=== PATIENT | female | born 1965 | race Caucasian/White ===

== ENCOUNTER 2016-12-27 00:51 | Emergency (ER) | payer OTHER ==
--- NOTE | 2016-12-27 01:42 | ED NURSING NOTES ---
Clinical Report - Nurses [place] [address] [place] [address] 12/27/2016 0:51 Patient: SUMA VANEGAS TRIAGE Chief Complaint: DRUG OVERDOSE. Alert. No acute distress. MAT COMA SCORE: Mat Coma Scale: 15- eyes open spontaneously (4); best verbal response- oriented x 4 (5); best motor response- obeys commands (6). --01:02 Prashant Russo R.N. 00:56 12/27/16. BP: 131/108. HR: 103. RR: 16. O2 saturation: 99%. Temp: 97.9 F (oral). --01:02 Prashant Russo R.N. Weight: 63.5 kg. Height/Length: 65 inches Per Patient. BMI: 23.3. --01:02 Prashant Russo R.N. Medications None. --01:00 Prashant Russo R.N. Allergies No Known Drug Allergy. --01:00 Prashant Russo R.N. History Arrived by private vehicle, and accompanied by family. This occurred just prior to arrival approximately 25 minutes ago. ( Patient presents to the ED via medics with concerns that she may have accidently injected a speedball in her carotid artery instead of the vein. Patient complaining of pain at the injection site. Patient is drowsy upon arrival.). Treatment CLASSIFIED ADVERTISING MANAGER: None. PAST MEDICAL HX: Immunizations: up-to-date. SOCIAL HX: Heavy tobacco smoker (cigarette)- less than 1 pack per day. Occasional alcohol use. History of heavy IV drug use: heroin, methamphetamines. FALL RISK ASSESSMENT: Fall risk assessment completed. No fall risk identified. NUTRITIONAL RISK ASSESSMENT: The nutritional risk assessment revealed no deficiencies. FUNCTIONAL ASSESSMENT: Functional assessment: no impairments noted. LEARNING NEEDS ASSESSMENT: The learning needs assessment revealed no barriers. SKIN INTEGRITY ASSESSMENT: Skin integrity risk assessment completed. No skin integrity risk identified. --01:02 Prashant Russo R.N. PROBLEMS: Carpal Tunnel Syndrome [Chronic]. --01:00 Prashant Russo R.N. Hepatitis C. Cervical cancer. Subconjunctival Hemorrhage. Conjunctivitis. Cervical Dysplasia. Cellulitis. Tetanus Status. Immunizations. Lifestyle / Substance Problems. Abscess. LNMP - Last Normal Menstrual Period. --01:00 Prashant Russo R.N. Sty [RuleOut]. --01:00 Prashant Russo R.N. The following entry was modified by Danya Amaya MD, 01:07 Reason - duplicate <<STRICKEN ENTRY-- Abcess hx. --01:07 Danya Amaya MD --END STRIKE>> The following entry was modified by Danya Amaya MD, 01:07 Reason - duplicate <<STRICKEN ENTRY-- Carpal Tunnel Syndrome. --15:43 Danya Amaya MD --END STRIKE>>. ADDITIONAL SURGERIES: Ankle pinning. Incision and drainage of abscess. --01:00 Prashant Russo R.N. Interventions ID band on patient. To treatment room. --01:02 Prashant Russo R.N. PHYSICAL ASSESSMENT To room via stretcher. GENERAL / NEURO / PSYCH: Alert. Oriented X 4. Appears in no acute distress. Patient appears calm and cooperative. Gag reflex present. Speech within normal limits. RESPIRATORY: Respirations not labored. Breath sounds within normal limits. CVS: Normal sinus rhythm noted. Capillary refill less than 2 seconds. GI / : Abdomen soft and nontender. Bowel sounds within normal limits. SKIN: Skin intact. Skin is warm and dry. Skin color is within normal limits. Affect appears within normal limits. --01:02 Prashant Russo R.N. NURSING PROGRESS NOTES Reassurance given. Call light placed in reach. Side rails up x 2. Bed placed in lowest position. Brakes of bed on. --01: Prashant Russo R.N. 01:09 12/27/16. BP: 131/91. HR: 98. RR: 16. O2 saturation: 94%. --01:10 Prashant Russo R.N. Care transferred and report received (from Prashant, RN). --01:10 Sepideh Spencer R.N. DISPOSITION / DISCHARGE Condition at departure: stable. No learning barriers present. Discharge instructions provided and reviewed with the patient. Patient verbalized understanding. Written instructions provided in Setswana. The patient was discharged home. --01:49 Jayshree Montgomery R.N. 01:48 12/27/16. BP: 126/75. HR: 99. RR: 16. O2 saturation: 94% on room air. Temp: deferred. Macdonald-Ravi pain scale: 01/04. --01:49 Jayshree Montgomery R.N. ( bankruptcy assistant making phone calls to get pt a ride home via [facility]). --01:50 Jayshree Montgomery R.N. ( [facility] ETA 1hr. Pt informed and will wait in the lobby). --01:53 Jayshree Montgomery R.N. Locked/Released at 12/27/2016 1:54 by Jayshree Montgomery R.N.
--- NOTE | 2016-12-27 01:42 | ED NURSING NOTES ---
Clinical Report - Nurses [place] [address] [place] [address] 12/27/2016 0:51 Patient: SUMA VANEGAS TRIAGE Chief Complaint: DRUG OVERDOSE. Alert. No acute distress. MAT COMA SCORE: Mat Coma Scale: 15- eyes open spontaneously (4); best verbal response- oriented x 4 (5); best motor response- obeys commands (6). --01:02 Prashant Russo R.N. 00:56 12/27/16. BP: 131/108. HR: 103. RR: 16. O2 saturation: 99%. Temp: 97.9 F (oral). --01:02 Prashant Russo R.N. Weight: 63.5 kg. Height/Length: 65 inches Per Patient. BMI: 23.3. --01:02 Prashant Russo R.N. Medications None. --01:00 Prashant Russo R.N. Allergies No Known Drug Allergy. --01:00 Prashant Russo R.N. History Arrived by private vehicle, and accompanied by family. This occurred just prior to arrival approximately 25 minutes ago. ( Patient presents to the ED via medics with concerns that she may have accidently injected a speedball in her carotid artery instead of the vein. Patient complaining of pain at the injection site. Patient is drowsy upon arrival.). Treatment CURRICULUM DEVELOPMENT SPECIALIST: None. PAST MEDICAL HX: Immunizations: up-to-date. SOCIAL HX: Heavy tobacco smoker (cigarette)- less than 1 pack per day. Occasional alcohol use. History of heavy IV drug use: heroin, methamphetamines. FALL RISK ASSESSMENT: Fall risk assessment completed. No fall risk identified. NUTRITIONAL RISK ASSESSMENT: The nutritional risk assessment revealed no deficiencies. FUNCTIONAL ASSESSMENT: Functional assessment: no impairments noted. LEARNING NEEDS ASSESSMENT: The learning needs assessment revealed no barriers. SKIN INTEGRITY ASSESSMENT: Skin integrity risk assessment completed. No skin integrity risk identified. --01:02 Prashant Russo R.N. PROBLEMS: Carpal Tunnel Syndrome [Chronic]. --01:00 Prashant Russo R.N. Hepatitis C. Cervical cancer. Subconjunctival Hemorrhage. Conjunctivitis. Cervical Dysplasia. Cellulitis. Tetanus Status. Immunizations. Lifestyle / Substance Problems. Abscess. LNMP - Last Normal Menstrual Period. --01:00 Prashant Russo R.N. Sty [RuleOut]. --01:00 Prashant Russo R.N. The following entry was modified by Danya Amaya MD, 01:07 Reason - duplicate <<STRICKEN ENTRY-- Abcess hx. --01:07 Danya Amaya MD --END STRIKE>> The following entry was modified by Danya Amaya MD, 01:07 Reason - duplicate <<STRICKEN ENTRY-- Carpal Tunnel Syndrome. --15:43 Danya Amaya MD --END STRIKE>>. ADDITIONAL SURGERIES: Ankle pinning. Incision and drainage of abscess. --01:00 Prashant Russo R.N. Interventions ID band on patient. To treatment room. --01:02 Prashant Russo R.N. PHYSICAL ASSESSMENT To room via stretcher. GENERAL / NEURO / PSYCH: Alert. Oriented X 4. Appears in no acute distress. Patient appears calm and cooperative. Gag reflex present. Speech within normal limits. RESPIRATORY: Respirations not labored. Breath sounds within normal limits. CVS: Normal sinus rhythm noted. Capillary refill less than 2 seconds. GI / : Abdomen soft and nontender. Bowel sounds within normal limits. SKIN: Skin intact. Skin is warm and dry. Skin color is within normal limits. Affect appears within normal limits. --01:02 Prashant Russo R.N. NURSING PROGRESS NOTES Reassurance given. Call light placed in reach. Side rails up x 2. Bed placed in lowest position. Brakes of bed on. --01: Prashant Russo R.N. 01:09 12/27/16. BP: 131/91. HR: 98. RR: 16. O2 saturation: 94%. --01:10 Prashant Russo R.N. Care transferred and report received (from Prashant, RN). --01:10 Sepideh Spencer R.N. DISPOSITION / DISCHARGE Condition at departure: stable. No learning barriers present. Discharge instructions provided and reviewed with the patient. Patient verbalized understanding. Written instructions provided in Spanish. The patient was discharged home. --01:49 Jayshree Montgomery R.N. 01:48 12/27/16. BP: 126/75. HR: 99. RR: 16. O2 saturation: 94% on room air. Temp: deferred. Macdonald-Ravi pain scale: 01/04. --01:49 Jayshree Montgomery R.N. ( campus security director making phone calls to get pt a ride home via [facility]). --01:50 Jayshree Montgomery R.N. ( [facility] ETA 1hr. Pt informed and will wait in the lobby). --01:53 Jayshree Montgomery R.N. Locked/Released at 12/27/2016 1:54 by Jayshree Montgomery R.N.
--- NOTE | 2016-12-27 01:42 | ED CLINICAL REPORT ---
Clinical Report - Physicians/Mid Levels [facility] [address] [place] [address] 12/27/2016 0:51 Patient: SUMA VANEGAS Time Seen: 4. Arrived- By ambulance. Historian- patient and EMS personnel. HISTORY OF PRESENT ILLNESS Chief Complaint: ; "I just did a speedball, and they brought me in.". Symptoms started today. Substances abused: Cocaine and heroin. Medics state they were called because somebody witnessed the pt shooting up in her neck. Pt was drowsy en-route, but only complaint was a small pain at the injection site (L EJ area). No fever, chills, nausea, vomiting or diarrhea. No abdominal pain, tremors, seizure, agitation or delusions. No hallucinations or suicidal thoughts. Not confused or paranoid. Has not been depressed. The symptoms are described as mild. No injuries noted. Similar symptoms previously: Recent medical care: Not recently seen/assessed. REVIEW OF SYSTEMS The patient has not had weight loss. No sweats, headache, dizziness, weakness or chest pain. No palpitations, black stools, numbness, bloody stools or sore throat. No cough, difficulty breathing, difficulty with urination, skin abscess or joint pain. No enlarged lymph nodes. No difficulty walking. All systems otherwise negative, except as recorded above. PAST HISTORY Problems: Carpal Tunnel Syndrome [Chronic]. Hepatitis C. Cervical cancer. Subconjunctival Hemorrhage. Cervical Dysplasia. Tetanus Status. Immunizations. Lifestyle / Substance Problems. Abscess. LNMP - Last Normal Menstrual Period. Additional Surgeries: Ankle pinning. Incision and drainage of abscess. Medications: None. Allergies: No Known Drug Allergy. SOCIAL HISTORY Smoker- current status unknown. Alcohol use. History of heavy IV drug use: cocaine, heroin. ADDITIONAL NOTES The nursing notes have been reviewed. PHYSICAL EXAM Vital Signs: 12/27/2016 00:56 BP: 131/108. HR: 103. RR: 16. O2 saturation: 99%. Temp: 97.9 F. Have been reviewed. Appearance: Oriented X3. No acute distress. (Pt is mildly drowsy, but able to answer questions.). Head: Head atraumatic. Eyes: Pupils equal, round and reactive to light. ENT: Normal ENT inspection. Airway intact. Moist mucous membranes. Neck: Normal inspection. Neck supple. CVS: Normal heart rate and rhythm. Heart sounds normal. Pulses normal. Respiratory: No respiratory distress. Breath sounds normal. Abdomen: Soft and nontender. Back: Normal inspection. Skin: Skin warm and dry. Normal skin color. No rash. Normal skin turgor. Extremities: Extremities exhibit normal ROM. No lower extremity edema. Neuro: Oriented X 3. Alertness is decreased(drowsy) (mildly). Mood/affect normal. Speech normal. Cranial nerves normal (as tested). No cerebellar findings. No motor deficit. No sensory deficit. LABS, X-RAYS, AND EKG Pulse Oximetry: 12/27/2016 00:56 O2 saturation: 99%. (FIO2 - room air). Interpretation: normal. PROGRESS AND PROCEDURES Course of Care: Pt was observed in the ED, and was without deterioration. She was ultimately deemed stable for d/c home. Patient counseled in person regarding the patient's stable condition, diagnosis and need for follow-up. Concerns were addressed. Old medical records reviewed. Disposition: Discharged. Condition: stable and improved. CLINICAL IMPRESSION Chronic substance abuse- heroin, cocaine with intoxication. INSTRUCTIONS Warnings: GENERAL WARNINGS: Return or contact your physician immediately if your condition worsens or changes unexpectedly, if not improving as expected, or if other problems arise. Understanding of the discharge instructions verbalized by patient. Follow-up with: [facility], , , [address], , [place], [id number] Follow up as needed. Call for an appointment. (Electronically signed by Danya Amaya MD 12/31/2016 17:47)
--- NOTE | 2016-12-27 01:42 | ED CLINICAL REPORT ---
Clinical Report - Physicians/Mid Levels [facility] [address] [place] [address] 12/27/2016 0:51 Patient: SUMA VANEGAS Time Seen: 4. Arrived- By ambulance. Historian- patient and EMS personnel. HISTORY OF PRESENT ILLNESS Chief Complaint: ; "I just did a speedball, and they brought me in.". Symptoms started today. Substances abused: Cocaine and heroin. Medics state they were called because somebody witnessed the pt shooting up in her neck. Pt was drowsy en-route, but only complaint was a small pain at the injection site (L EJ area). No fever, chills, nausea, vomiting or diarrhea. No abdominal pain, tremors, seizure, agitation or delusions. No hallucinations or suicidal thoughts. Not confused or paranoid. Has not been depressed. The symptoms are described as mild. No injuries noted. Similar symptoms previously: Recent medical care: Not recently seen/assessed. REVIEW OF SYSTEMS The patient has not had weight loss. No sweats, headache, dizziness, weakness or chest pain. No palpitations, black stools, numbness, bloody stools or sore throat. No cough, difficulty breathing, difficulty with urination, skin abscess or joint pain. No enlarged lymph nodes. No difficulty walking. All systems otherwise negative, except as recorded above. PAST HISTORY Problems: Carpal Tunnel Syndrome [Chronic]. Hepatitis C. Cervical cancer. Subconjunctival Hemorrhage. Cervical Dysplasia. Tetanus Status. Immunizations. Lifestyle / Substance Problems. Abscess. LNMP - Last Normal Menstrual Period. Additional Surgeries: Ankle pinning. Incision and drainage of abscess. Medications: None. Allergies: No Known Drug Allergy. SOCIAL HISTORY Smoker- current status unknown. Alcohol use. History of heavy IV drug use: cocaine, heroin. ADDITIONAL NOTES The nursing notes have been reviewed. PHYSICAL EXAM Vital Signs: 12/27/2016 00:56 BP: 131/108. HR: 103. RR: 16. O2 saturation: 99%. Temp: 97.9 F. Have been reviewed. Appearance: Oriented X3. No acute distress. (Pt is mildly drowsy, but able to answer questions.). Head: Head atraumatic. Eyes: Pupils equal, round and reactive to light. ENT: Normal ENT inspection. Airway intact. Moist mucous membranes. Neck: Normal inspection. Neck supple. CVS: Normal heart rate and rhythm. Heart sounds normal. Pulses normal. Respiratory: No respiratory distress. Breath sounds normal. Abdomen: Soft and nontender. Back: Normal inspection. Skin: Skin warm and dry. Normal skin color. No rash. Normal skin turgor. Extremities: Extremities exhibit normal ROM. No lower extremity edema. Neuro: Oriented X 3. Alertness is decreased(drowsy) (mildly). Mood/affect normal. Speech normal. Cranial nerves normal (as tested). No cerebellar findings. No motor deficit. No sensory deficit. LABS, X-RAYS, AND EKG Pulse Oximetry: 12/27/2016 00:56 O2 saturation: 99%. (FIO2 - room air). Interpretation: normal. PROGRESS AND PROCEDURES Course of Care: Pt was observed in the ED, and was without deterioration. She was ultimately deemed stable for d/c home. Patient counseled in person regarding the patient's stable condition, diagnosis and need for follow-up. Concerns were addressed. Old medical records reviewed. Disposition: Discharged. Condition: stable and improved. CLINICAL IMPRESSION Chronic substance abuse- heroin, cocaine with intoxication. INSTRUCTIONS Warnings: GENERAL WARNINGS: Return or contact your physician immediately if your condition worsens or changes unexpectedly, if not improving as expected, or if other problems arise. Understanding of the discharge instructions verbalized by patient. Follow-up with: [facility], , , [address], , [place], [id number] Follow up as needed. Call for an appointment. (Electronically signed by Danya Amaya MD 12/31/2016 17:47)
--- NOTE | 2016-12-31 17:48 | ED MED RECONCILIATION SUMMARY ---
Patient: SUMA VANEGAS Medication Reconciliation Report [facility] VisitID: [id number] [address] [place] [address] 51y, F Registration Date/Time: 12/27/2016 Weight: 63.5 kg Height/Length: 65 in. BMI: 23.3 ALLERGIES: No Known Drug Allergy The patient's Home Medications are listed below: NONE. The source(s) of the original Home Medication information: Not obtained. The following Medications were given to the patient in the Emergency Department: None. The following Medications were prescribed to the patient: None.
--- NOTE | 2016-12-31 17:48 | ED MED RECONCILIATION SUMMARY ---
Patient: SMUA VANEGAS Medication Reconciliation Report [facility] VisitID: [id number] [address] [place] [address] 51y, F Registration Date/Time: 12/27/2016 Weight: 63.5 kg Height/Length: 65 in. BMI: 23.3 ALLERGIES: No Known Drug Allergy The patient's Home Medications are listed below: NONE. The source(s) of the original Home Medication information: Not obtained. The following Medications were given to the patient in the Emergency Department: None. The following Medications were prescribed to the patient: None.
--- NOTE | 2016-12-31 17:48 | ED MAR SUMMARY ---
..... Medication Administration Record [facility] [address] [id number] Patient: SUMA VANEGAS Visit ID: [id number] 51y, F Weight: 63.5 kg Height/Length: 65 in BMI: 23.3 ALLERGIES: No Known Drug Allergy
--- NOTE | 2016-12-31 17:48 | ED DISCHARGE INSTRUCTIONS ---
Patient: SUMA VANEGAS General Instructions [facility] VisitID: [id number] [address] [place] [address] 51y, F Registration Date/Time: 12/27/2016 Chronic substance abuse- heroin, cocaine with intoxication. INSTRUCTIONS Warnings: GENERAL WARNINGS: Return or contact your physician immediately if your condition worsens or changes unexpectedly, if not improving as expected, or if other problems arise. Understanding of the discharge instructions verbalized by patient. Follow-up with: [facility], , , [address], , [place], [id number] Follow up as needed. Call for an appointment. ADDITIONAL INFORMATION Drug Abuse Use and abuse of such drugs as marijuana, amphetamines (speed, crank), cocaine, heroin or prescription pain medicines (Vicodin, codeine), sedatives and sleeping pills (Valium, Klonopin), PCP, mescaline and LSD may lead to addiction or dependence. Once this occurs, you are at greater risk for any of the following: Craving for the drug and unable to stop using the drug even though you think you want to stop (psychological dependence) Drug withdrawal symptoms if you stop taking the drug (physical dependence) Loss of your job or your family Arrest, conviction and snf sentence for possession of an illegal substance or for driving under the influence of such a substance Accidental injuries to yourself or others while you are under the influence of the drug (in a car or at home). HIV infection (much greater risk if you use IV drugs) Other sexually transmitted diseases (herpes, chlamydia, gonorrhea and others) Severe and fatal infection of the heart valves (if you use IV drugs) Stroke, heart attack, hepatitis B or C, kidney failure from overdose Home Care: Admit you have a drug problem. Ask for help from your family and close friends. Seek professional help. This could be in the form of individual psychotherapy or counseling or an outpatient, inpatient, or residential drug treatment program. Join a self-help group for drug abuse. Avoid friends who abuse drugs themselves or tempt you to continue abusing drugs. Eat a balanced diet and begin a regular exercise program. Follow Up with your doctor or as advised by our staff. Contact one of the resources below for help. National [place] on Alcoholism and Drug Dependence www.ncadd.org 254-839-XRSU Narcotics Anonymous www.na.org 948-568-7889 National Alcohol and Substance Abuse Information Center (for referral to treatment programs) www.[employer] 310-121-6837 Get Prompt Medical Attention if any of the following occur: Agitation, anxiety, unable to sleep Unintended weight loss (more than 10 to 15 pounds over 3 months) Seizure Chest pain Fever of 100.4F (38C) or higher, or as directed by your healthcare provider Excess drowsiness or inability to be awakened Shortness of breath Slow breathing under 8 breaths per minute Cough with colored sputum Redness, swelling or tenderness at an injection site Cocaine and Crack Abuse Cocaine is typically snorted or injected intravenously (IV).Crack is made from cocaine, and can be smoked, causing a more potent effect. Cocaine causes a very powerful psychological dependence. Once you have a psychological dependence, you will do just about anything to get the drug and recreate the feeling it produces. This can increase your risk for any of the following: Overdose that may lead to Loss of your job, your home, your family Accidental injuries to yourself or others while you are under the influence of the drug (in a car or at home) Arrest, conviction and snf sentence for possession of an illegal substance or for driving under the influence Medically, cocaine can affect every organ in your body.It can cause: Chest pain, arrhythmia (abnormal heart beating), heart attack Severe headache, seizures, loss of consciousness, stroke Anxiety, psychosis, confusion Nasal damage (from snorting) Chronic bronchitis (from smoking), shortness of breath HIV infection, Hepatitis B or C, heart infection (from IV use) Kidney failure Home Care: Admit you have a drug problem. Ask for help from your family and close friends. Seek psychotherapy or counseling if depression or anxiety is a problem for you. Join a self-help group for drug abuse. Avoid friends who abuse drugs themselves or tempt you to continue abusing the drug. Eat a balanced diet and begin a regular exercise program. If you continue to use IV cocaine, decrease your risk of receiving or spreading infection by: Only using sterile equipment Do not reuse or share equipment Clean the skin before injecting Follow Up With Your Doctor Or As Advised By Our Staff. Contact One Of The Resources Below For Help. National [place] on Alcoholism and Drug Dependence 363-384-AIQS www.ncadd.org Narcotics Anonymous www.na.org National Alcohol and Substance Abuse Information Center (can tell you about the drug treatment programs in your area) 508.618.7480 www.addictioncareoptions.com Return Promptly Or Contact Your Doctor If Any Of The Following Occurs: Chest, arm, neck or upper back pain Shortness of breath, dizziness, weakness, passing out Agitation, anxiety, unable to sleep Unintended weight loss (more than 10-15 pounds over 6 months) Hallucination, severe depression, thoughts of harming yourself or another Severe headache, seizure; numbness or weakness of the face, one arm or one leg Slurred speech, confusion, trouble speaking, walking or seeing Fever of 100.4F(38C) or higher, or as directed by your healthcare provider Redness, pain or swelling at an injection site Loss of vision or decreased vision Opiate Abuse Use and abuse of heroin or prescription pain medicines (Vicodin, codeine) may lead to physical ADDICTION or psychological DEPENDENCE. Once this occurs, you are at greater risk for any of the following: - Craving for the drug and unable to stop using the drug even though you think you want to stop (psychological dependence) - Drug withdrawal symptoms if you stop taking the drug (physical addiction) - Loss of your job or your family - Arrest, conviction and snf sentence for possession of an illegal substance or for driving under the influence of such a substance - Accidental injuries to yourself or others while you are under the influence of the drug (in a car or at home). - HIV infection (much greater risk if you use IV drugs) - Other sexually transmitted diseases (Herpes, chlamydia, gonorrhea and others) - Severe and fatal infection of the heart valves (if you use IV drugs) - Stroke, heart attack, hepatitis B or C, kidney failure - from overdose Home Care: 1) Admit you have a drug problem. Ask for help from your family and close friends. 2) Seek professional help. This could be individual psychotherapy, counseling, or a drug treatment program (outpatient or residential). 3) Join a self-help group for drug abuse. 4) Avoid friends who abuse drugs themselves or tempt you to continue your habit 5) Eat a balanced diet and begin a regular exercise program. Follow Up with your doctor or as advised by our staff. Contact one of the resources below for help. National [place] on Alcoholism and Drug Dependence, www.ncadd.org 571-170-HQNY Narcotics Anonymous (check your phone book for a local listing or call 287-964-0322) www.na.org National Alcohol and Substance Abuse Information Center (for referral to treatment programs) Www.RPO 755-492-9878 Get Prompt Medical Attention if any of the following occur: -- Symptoms of withdrawal (agitation, anxiety, trembling, sweats, diarrhea, unable to sleep) -- Chest pain -- Unexplained fever over 100.4 F (38.0 C) -- Excessive drowsiness or inability to be awakened -- Slow breathing under 8 breaths per minute -- Shortness of breath or cough with colored sputum -- Redness, swelling or tenderness at an injection site You have been given the following additional information: Drug Abuse Cocaine And Crack Abuse Opiate Abuse (Electronically signed by Danya Amaya MD 12/31/2016 17:47)
--- NOTE | 2016-12-31 17:48 | ED MAR SUMMARY ---
..... Medication Administration Record [facility] [address] [id number] Patient: SUMA VANEGAS Visit ID: [id number] 51y, F Weight: 63.5 kg Height/Length: 65 in BMI: 23.3 ALLERGIES: No Known Drug Allergy
--- NOTE | 2016-12-31 17:48 | ED DISCHARGE INSTRUCTIONS ---
Patient: SUMA VANEGAS General Instructions [facility] VisitID: [id number] [address] [place] [address] 51y, F Registration Date/Time: 12/27/2016 Chronic substance abuse- heroin, cocaine with intoxication. INSTRUCTIONS Warnings: GENERAL WARNINGS: Return or contact your physician immediately if your condition worsens or changes unexpectedly, if not improving as expected, or if other problems arise. Understanding of the discharge instructions verbalized by patient. Follow-up with: [facility], , , [address], , [place], [id number] Follow up as needed. Call for an appointment. ADDITIONAL INFORMATION Drug Abuse Use and abuse of such drugs as marijuana, amphetamines (speed, crank), cocaine, heroin or prescription pain medicines (Vicodin, codeine), sedatives and sleeping pills (Valium, Klonopin), PCP, mescaline and LSD may lead to addiction or dependence. Once this occurs, you are at greater risk for any of the following: Craving for the drug and unable to stop using the drug even though you think you want to stop (psychological dependence) Drug withdrawal symptoms if you stop taking the drug (physical dependence) Loss of your job or your family Arrest, conviction and group home sentence for possession of an illegal substance or for driving under the influence of such a substance Accidental injuries to yourself or others while you are under the influence of the drug (in a car or at home). HIV infection (much greater risk if you use IV drugs) Other sexually transmitted diseases (herpes, chlamydia, gonorrhea and others) Severe and fatal infection of the heart valves (if you use IV drugs) Stroke, heart attack, hepatitis B or C, kidney failure from overdose Home Care: Admit you have a drug problem. Ask for help from your family and close friends. Seek professional help. This could be in the form of individual psychotherapy or counseling or an outpatient, inpatient, or residential drug treatment program. Join a self-help group for drug abuse. Avoid friends who abuse drugs themselves or tempt you to continue abusing drugs. Eat a balanced diet and begin a regular exercise program. Follow Up with your doctor or as advised by our staff. Contact one of the resources below for help. National [place] on Alcoholism and Drug Dependence www.ncadd.org 928-534-UDJH Narcotics Anonymous www.na.org 445-653-0529 National Alcohol and Substance Abuse Information Center (for referral to treatment programs) www.[employer] 672-524-1570 Get Prompt Medical Attention if any of the following occur: Agitation, anxiety, unable to sleep Unintended weight loss (more than 10 to 15 pounds over 3 months) Seizure Chest pain Fever of 100.4F (38C) or higher, or as directed by your healthcare provider Excess drowsiness or inability to be awakened Shortness of breath Slow breathing under 8 breaths per minute Cough with colored sputum Redness, swelling or tenderness at an injection site Cocaine and Crack Abuse Cocaine is typically snorted or injected intravenously (IV).Crack is made from cocaine, and can be smoked, causing a more potent effect. Cocaine causes a very powerful psychological dependence. Once you have a psychological dependence, you will do just about anything to get the drug and recreate the feeling it produces. This can increase your risk for any of the following: Overdose that may lead to Loss of your job, your home, your family Accidental injuries to yourself or others while you are under the influence of the drug (in a car or at home) Arrest, conviction and group home sentence for possession of an illegal substance or for driving under the influence Medically, cocaine can affect every organ in your body.It can cause: Chest pain, arrhythmia (abnormal heart beating), heart attack Severe headache, seizures, loss of consciousness, stroke Anxiety, psychosis, confusion Nasal damage (from snorting) Chronic bronchitis (from smoking), shortness of breath HIV infection, Hepatitis B or C, heart infection (from IV use) Kidney failure Home Care: Admit you have a drug problem. Ask for help from your family and close friends. Seek psychotherapy or counseling if depression or anxiety is a problem for you. Join a self-help group for drug abuse. Avoid friends who abuse drugs themselves or tempt you to continue abusing the drug. Eat a balanced diet and begin a regular exercise program. If you continue to use IV cocaine, decrease your risk of receiving or spreading infection by: Only using sterile equipment Do not reuse or share equipment Clean the skin before injecting Follow Up With Your Doctor Or As Advised By Our Staff. Contact One Of The Resources Below For Help. National [place] on Alcoholism and Drug Dependence 098-692-ATAO www.ncadd.org Narcotics Anonymous www.na.org National Alcohol and Substance Abuse Information Center (can tell you about the drug treatment programs in your area) 980.220.9885 www.addictioncareoptions.com Return Promptly Or Contact Your Doctor If Any Of The Following Occurs: Chest, arm, neck or upper back pain Shortness of breath, dizziness, weakness, passing out Agitation, anxiety, unable to sleep Unintended weight loss (more than 10-15 pounds over 6 months) Hallucination, severe depression, thoughts of harming yourself or another Severe headache, seizure; numbness or weakness of the face, one arm or one leg Slurred speech, confusion, trouble speaking, walking or seeing Fever of 100.4F(38C) or higher, or as directed by your healthcare provider Redness, pain or swelling at an injection site Loss of vision or decreased vision Opiate Abuse Use and abuse of heroin or prescription pain medicines (Vicodin, codeine) may lead to physical ADDICTION or psychological DEPENDENCE. Once this occurs, you are at greater risk for any of the following: - Craving for the drug and unable to stop using the drug even though you think you want to stop (psychological dependence) - Drug withdrawal symptoms if you stop taking the drug (physical addiction) - Loss of your job or your family - Arrest, conviction and group home sentence for possession of an illegal substance or for driving under the influence of such a substance - Accidental injuries to yourself or others while you are under the influence of the drug (in a car or at home). - HIV infection (much greater risk if you use IV drugs) - Other sexually transmitted diseases (Herpes, chlamydia, gonorrhea and others) - Severe and fatal infection of the heart valves (if you use IV drugs) - Stroke, heart attack, hepatitis B or C, kidney failure - from overdose Home Care: 1) Admit you have a drug problem. Ask for help from your family and close friends. 2) Seek professional help. This could be individual psychotherapy, counseling, or a drug treatment program (outpatient or residential). 3) Join a self-help group for drug abuse. 4) Avoid friends who abuse drugs themselves or tempt you to continue your habit 5) Eat a balanced diet and begin a regular exercise program. Follow Up with your doctor or as advised by our staff. Contact one of the resources below for help. National [place] on Alcoholism and Drug Dependence, www.ncadd.org 033-756-VGIR Narcotics Anonymous (check your phone book for a local listing or call 378-568-1811) www.na.org National Alcohol and Substance Abuse Information Center (for referral to treatment programs) Www.[employer] 427-162-0956 Get Prompt Medical Attention if any of the following occur: -- Symptoms of withdrawal (agitation, anxiety, trembling, sweats, diarrhea, unable to sleep) -- Chest pain -- Unexplained fever over 100.4 F (38.0 C) -- Excessive drowsiness or inability to be awakened -- Slow breathing under 8 breaths per minute -- Shortness of breath or cough with colored sputum -- Redness, swelling or tenderness at an injection site You have been given the following additional information: Drug Abuse Cocaine And Crack Abuse Opiate Abuse (Electronically signed by Danya Amaya MD 12/31/2016 17:47)
== END 2016-12-27 01:48 | disposition home or self-care (01) ==
LOC: ED SRH 00:51
DX: F14.129 Cocaine abuse with intoxication, unspecified (principal); F11.129 Opioid abuse with intoxication, unspecified

== ENCOUNTER 2017-03-20 08:32 | Emergency (ER) | payer OTHER ==
--- NOTE | 2017-03-20 09:41 | ED CLINICAL REPORT ---
Clinical Report - Physicians/Mid Levels Merged With [facility] [address] [place] [address] 03/20/2017 8:33 Patient: SUMA VANEGAS Time Seen: 09:15; initial patient contact. Arrived- By private vehicle. Historian- patient. HISTORY OF PRESENT ILLNESS Chief Complaint: BOIL. This started about 5 days ago and is still present and worsening. It was gradual in onset. It is described as painful. It has been located on the left thigh. A cause has been identified (IVDA). Similar symptoms previously: Many times. Recent medical care: Not recently seen/assessed. REVIEW OF SYSTEMS No fever, enlarged lymph nodes, nausea or vomiting. She has had chills. All systems otherwise negative, except as recorded above. PAST HISTORY Carpal Tunnel Syndrome Substance Abuse. Hepatitis C. Cervical cancer. Subconjunctival Hemorrhage. Conjunctivitis. Cervical Dysplasia. Cellulitis. Tetanus Status. Immunizations. Lifestyle / Substance Problems. Abscess. Sty SURGERIES: Ankle pinning. Incision and drainage of abscess. -. SOCIAL HISTORY Current every day smoker. History of IV drug use: heroin, methamphetamines. Recently used drugs yesterday. No alcohol use. ADDITIONAL NOTES The nursing notes have been reviewed. PHYSICAL EXAM Vital Signs: 03/20/2017 08:46 BP: 130/78. HR: 99. RR: 16. O2 saturation: 100%. Temp: 98.1 F. Pain level now: 9/10. Have been reviewed as normal. Appearance: Alert. Oriented X3. No acute distress. ENT: Pharynx normal. CVS: Normal heart rate and rhythm. Heart sounds normal. Respiratory: No respiratory distress. Breath sounds normal. Skin: Single medium tender indurated area with pointing and cellulitis to left thigh. No fluctuance. Extremities: No lower extremity edema. Neuro: Oriented X 3. No motor deficit. CLINICAL IMPRESSION Single deep abscess to the left lower extremity. No incision and drainage. INSTRUCTIONS Follow-up: Screening today revealed the patient's blood pressure to be in the pre-hypertensive range. The patient should follow up with a primary care provider for blood pressure management. AMA warnings: Oriented to person, place, and time. Gives appropriate answers and rational explanation of refusal of care. No indication for involuntary commitment is present, signs of psychosis, auditory hallucinations, delusional thinking or suicidal ideations. No slurred speech, tangential thinking, visual hallucinations or homicidal ideations. Speaks coherently. Abstract thinking intact. Clinical Impression: the patient has the capacity to make decisions regarding the medical care offered. Relevant issues reviewed and discussed with the patient. The suspected diagnosis, based upon the initiated medical screening exam, is abscess and has been discussed with the patient. Acknowledges understanding of the reasons for recommendations regarding medical treatment, medical tests and procedures. The recommended medical care being refused is IV, U/S, and possible I&D. Pt only wanted Rx for Abx. Discharge instructions were not provided. (Electronically signed by Alan Corral Dr. 03/20/2017 14:18)
--- NOTE | 2017-03-20 09:41 | ED ORDER SUMMARY ---
..... Patient: SUMA VANEGAS OrderSheet [facility] VisitID: [id number] [place] [address] 51y, F Registration Date/Time: 03/20/2017 ORDER SHEET Weight: 63.5 kg (stated) Allergies: No Known Drug Allergy GENERAL ORDERS: CBC w Diff Urgent (09:03/20/2017 Maritza Francisco) (Ack 9:25 LNations ER Tech1) (Cancelled: Patient Bhwurvi74:43 LNations ER Tech1) CMP Urgent (09:03/20/2017 Maritza Francisco) (Ack 9:25 LNations ER Tech1) (Cancelled: Patient Utyiohe05:43 LNations ER Tech1) UA-Culture if indicated Urgent (:03/20/2017 Maritza Francisco) (Ack 9:25 LNations ER Tech1) (Cancelled: Patient Vepdcum78:44 LNations ER Tech1) Urine Urgent (09:03/20/2017 Maritza Francisco) (Ack 9:25 LNations ER Tech1) (Cancelled: Patient Dzlcwuv07:44 LNations ER Tech1) Urine Drug Screen Urgent (:03/20/2017 Maritza Francisco) (Ack 9:25 LNations ER Tech1) (Cancelled: Patient Uwnvhhy63:44 LNations ER Tech1) US Soft Tissue Anywhere (L thigh) Urgent (09:03/20/2017 Maritza Francisco) (Cancelled: Patient Ucujhdf27:43 LNations ER Tech1) MEDICATION ORDERS: IV FLUIDS: IV NS : initial bolus none -, then 1000 mL/hr for X1 (NOW) (09:03/20/2017 Maritza Francisco) ORDER SHEET NOTES: [Electronically signed by Alan Corral Dr. (14:18 03/20/2017)] [Electronically signed by Ifeoma Becerra R.N. (16:36 03/20/2017)] [Electronically locked/signed by Ifeoma Becerra R.N. (16:36 03/20/2017)]
--- NOTE | 2017-03-20 09:41 | ED NURSING NOTES ---
Clinical Report - Nurses [facility] [address] [place] [address] 03/20/2017 8:33 Patient: SUMA VANEGAS TRIAGE Triage time 08:46 Mar 20 2017. Acuity: LEVEL 4. Chief Complaint: abscess. Alert. No acute distress. SEPSIS SCREEN: Sepsis Screen: negative. Infection suspected/documented. YONI COMA SCORE: [place] Coma Scale: 15- eyes open spontaneously (4); best verbal response- oriented x 4 (5); best motor response- obeys commands (6). --08:53 Ifeoma Becerra R.N. 08:46 03/20/17. BP: 130/78. HR: 99. RR: 16. O2 saturation: 100%. Temp: 98.1 F. Pain level now: 08/04. --08:53 Ifeoma Becerra R.N. Weight: 63.5 kg stated. Height/Length: 65 inches Per Patient. BMI: 23.3. --08:51 Ifeoma Becerra R.N. Medications None. --08:48 Ifeoma Becerra R.N. Medication/allergy information source: the patient. --08:53 Ifeoma Becerra R.N. Allergies No Known Drug Allergy. --08:48 Ifeoma Becerra R.N. History Arrived by private vehicle. Historian: patient. Accompanied by friend. Reported as located on the left thigh. Onset. (about 5 days). It is described as painful. No recent medication, food exposure or insect bite. ( pt states that she has abscess from using herion). 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 PAST MEDICAL HX: Immunizations: up-to-date. Last normal menstrual period was 1 week ago. Denies current . SOCIAL HX: Current every day heavy tobacco smoker (cigarette)- less than 1 pack per day. History of heavy IV drug use: heroin, methamphetamines. Recently used drugs yesterday. No alcohol use. No infectious disease exposure. SELF HARM ASSESSMENT: A self harm assessment was performed. The patient answered "no" to the question "Do you have thoughts of harming or killing yourself?". FALL RISK ASSESSMENT: Fall risk assessment completed. No fall risk identified. NUTRITIONAL RISK ASSESSMENT: The nutritional risk assessment revealed no deficiencies. FUNCTIONAL ASSESSMENT: Functional assessment: no impairments noted. LEARNING NEEDS ASSESSMENT: The learning needs assessment revealed no barriers. ABUSE ASSESSMENT: Abuse assessment: The patient was asked "Do you feel safe in your home?". SKIN INTEGRITY ASSESSMENT: Skin integrity risk assessment completed. No skin integrity risk identified. --08:53 Ifeoma Becerra R.N. PROBLEMS: Carpal Tunnel Syndrome [Chronic]. --08:49 Ifeoma Becerra R.N. Substance Abuse. Hepatitis C. Cervical cancer. Subconjunctival Hemorrhage. Conjunctivitis. Cervical Dysplasia. Cellulitis. Tetanus Status. Immunizations. Lifestyle / Substance Problems. Abscess. LNMP - Last Normal Menstrual Period. --08:49 Ifeoma Becerra R.N. Sty [RuleOut]. --08:49 Ifeoma Becerra R.N. ADDITIONAL SURGERIES: Ankle pinning. Incision and drainage of abscess. --08:49 Ifeoma Becerra R.N. Assessment The patient states feels the same. --08:53 Ifeoma Becerra R.N. Interventions ID band on patient. --08:53 Ifeoma Becerra R.N. PHYSICAL ASSESSMENT GENERAL / NEURO / PSYCH: Alert. The patient does not appear to be in acute distress. Appears in pain. Oriented X 4. HEENT: Mucous membranes are pink. RESPIRATORY: Respirations not labored. CVS: Capillary refill less than 2 seconds. Pulses within normal limits. GI / : Abdomen nontender. SKIN: Skin is warm and dry. Multiple wounds with erythema, tenderness and increased warmth on the left thigh- abscesses. --08:53 Ifeoma Becerra R.N. DISPOSITION / DISCHARGE Departure time: 09:39 Mar 20 2017. Condition at departure: unchanged. No learning barriers present. The patient left the Emergency Department against medical advice. The patient appears to be alert and oriented x4. She notified the ED staff prior to leaving the department and stated is leaving the ED (refused plan of care). Notified the ED physician of patient departure. Prior to leaving the ED, she was advised to stay for completion of treatment and return if needed. She was informed of the risks of leaving and verbalized understanding of these risks. Patient signed form prior to leaving. She left the Emergency Department ambulatory and via private vehicle. ( pt states that she just wanted antibiotics and did not want to have blood/ urine given nor ultrasound. pt states that her ride needed to go because she had to work. pt was advised of the risks and told to return ja or if symptoms worsened.). FALL RISK ASSESSMENT: Fall risk assessment completed. No fall risk identified. --09:43 Ifeoma Becerra R.N. Locked/Released at 03/20/2017 16:36 by Ifeoma Becerra R.N.
--- NOTE | 2017-03-20 09:41 | ED NURSING NOTES ---
Clinical Report - Nurses [facility] [address] [place] [address] 03/20/2017 8:33 Patient: SUMA VANEGAS TRIAGE Triage time 08:46 Mar 20 2017. Acuity: LEVEL 4. Chief Complaint: abscess. Alert. No acute distress. SEPSIS SCREEN: Sepsis Screen: negative. Infection suspected/documented. YONI COMA SCORE: [place] Coma Scale: 15- eyes open spontaneously (4); best verbal response- oriented x 4 (5); best motor response- obeys commands (6). --08:53 Ifeoma Becerra R.N. 08:46 03/20/17. BP: 130/78. HR: 99. RR: 16. O2 saturation: 100%. Temp: 98.1 F. Pain level now: 08/04. --08:53 Ifeoma Becerra R.N. Weight: 63.5 kg stated. Height/Length: 65 inches Per Patient. BMI: 23.3. --08:51 Ifeoma Becerra R.N. Medications None. --08:48 Ifeoma Becerra R.N. Medication/allergy information source: the patient. --08:53 Ifeoma Becerra R.N. Allergies No Known Drug Allergy. --08:48 Ifeoma Becerra R.N. History Arrived by private vehicle. Historian: patient. Accompanied by friend. Reported as located on the left thigh. Onset. (about 5 days). It is described as painful. No recent medication, food exposure or insect bite. ( pt states that she has abscess from using herion). 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 PAST MEDICAL HX: Immunizations: up-to-date. Last normal menstrual period was 1 week ago. Denies current . SOCIAL HX: Current every day heavy tobacco smoker (cigarette)- less than 1 pack per day. History of heavy IV drug use: heroin, methamphetamines. Recently used drugs yesterday. No alcohol use. No infectious disease exposure. SELF HARM ASSESSMENT: A self harm assessment was performed. The patient answered "no" to the question "Do you have thoughts of harming or killing yourself?". FALL RISK ASSESSMENT: Fall risk assessment completed. No fall risk identified. NUTRITIONAL RISK ASSESSMENT: The nutritional risk assessment revealed no deficiencies. FUNCTIONAL ASSESSMENT: Functional assessment: no impairments noted. LEARNING NEEDS ASSESSMENT: The learning needs assessment revealed no barriers. ABUSE ASSESSMENT: Abuse assessment: The patient was asked "Do you feel safe in your home?". SKIN INTEGRITY ASSESSMENT: Skin integrity risk assessment completed. No skin integrity risk identified. --08:53 Ifeoma Becerra R.N. PROBLEMS: Carpal Tunnel Syndrome [Chronic]. --08:49 Ifeoma Becerra R.N. Substance Abuse. Hepatitis C. Cervical cancer. Subconjunctival Hemorrhage. Conjunctivitis. Cervical Dysplasia. Cellulitis. Tetanus Status. Immunizations. Lifestyle / Substance Problems. Abscess. LNMP - Last Normal Menstrual Period. --08:49 Ifeoma Becerra R.N. Sty [RuleOut]. --08:49 Ifeoma Becerra R.N. ADDITIONAL SURGERIES: Ankle pinning. Incision and drainage of abscess. --08:49 Ifeoma Becerra R.N. Assessment The patient states feels the same. --08:53 Ifeoma Becerra R.N. Interventions ID band on patient. --08:53 Ifeoma Becerra R.N. PHYSICAL ASSESSMENT GENERAL / NEURO / PSYCH: Alert. The patient does not appear to be in acute distress. Appears in pain. Oriented X 4. HEENT: Mucous membranes are pink. RESPIRATORY: Respirations not labored. CVS: Capillary refill less than 2 seconds. Pulses within normal limits. GI / : Abdomen nontender. SKIN: Skin is warm and dry. Multiple wounds with erythema, tenderness and increased warmth on the left thigh- abscesses. --08:53 Ifeoma Becerra R.N. DISPOSITION / DISCHARGE Departure time: 09:39 Mar 20 2017. Condition at departure: unchanged. No learning barriers present. The patient left the Emergency Department against medical advice. The patient appears to be alert and oriented x4. She notified the ED staff prior to leaving the department and stated is leaving the ED (refused plan of care). Notified the ED physician of patient departure. Prior to leaving the ED, she was advised to stay for completion of treatment and return if needed. She was informed of the risks of leaving and verbalized understanding of these risks. Patient signed form prior to leaving. She left the Emergency Department ambulatory and via private vehicle. ( pt states that she just wanted antibiotics and did not want to have blood/ urine given nor ultrasound. pt states that her ride needed to go because she had to work. pt was advised of the risks and told to return ja or if symptoms worsened.). FALL RISK ASSESSMENT: Fall risk assessment completed. No fall risk identified. --09:43 Ifeoma Becerra R.N. Locked/Released at 03/20/2017 16:36 by Ifeoma Becerra R.N.
--- NOTE | 2017-03-20 09:41 | ED ORDER SUMMARY ---
..... Patient: SUMA VANEGAS OrderSheet [facility] VisitID: [id number] [place] [address] 51y, F Registration Date/Time: 03/20/2017 ORDER SHEET Weight: 63.5 kg (stated) Allergies: No Known Drug Allergy GENERAL ORDERS: CBC w Diff Urgent (09:03/20/2017 Maritza Francisco) (Ack 9:25 LNations ER Tech1) (Cancelled: Patient Cxnylwm76:43 LNations ER Tech1) CMP Urgent (09:03/20/2017 Maritza Francisco) (Ack 9:25 LNations ER Tech1) (Cancelled: Patient Ebroydw60:43 LNations ER Tech1) UA-Culture if indicated Urgent (:03/20/2017 Maritza Francisco) (Ack 9:25 LNations ER Tech1) (Cancelled: Patient Hkbmoni67:44 LNations ER Tech1) Urine Urgent (09:03/20/2017 Maritza Francisco) (Ack 9:25 LNations ER Tech1) (Cancelled: Patient Atyqkjs34:44 LNations ER Tech1) Urine Drug Screen Urgent (:03/20/2017 Maritza Francisco) (Ack 9:25 LNations ER Tech1) (Cancelled: Patient Mosfgto26:44 LNations ER Tech1) US Soft Tissue Anywhere (L thigh) Urgent (09:03/20/2017 Maritza Francisco) (Cancelled: Patient Uidxear89:43 LNations ER Tech1) MEDICATION ORDERS: IV FLUIDS: IV NS : initial bolus none -, then 1000 mL/hr for X1 (NOW) (09:03/20/2017 Maritza Francisco) ORDER SHEET NOTES: [Electronically signed by Alan Corral Dr. (14:18 03/20/2017)] [Electronically signed by Ifeoma Becerra R.N. (16:36 03/20/2017)] [Electronically locked/signed by Ifeoma Becerra R.N. (16:36 03/20/2017)]
--- NOTE | 2017-03-20 16:36 | ED DISCHARGE INSTRUCTIONS ---
Patient: SUMA VANEGAS General Instructions [facility] VisitID: [id number] [place] [address] 51y, F Registration Date/Time: 03/20/2017 Single deep abscess to the left lower extremity. No incision and drainage. INSTRUCTIONS Follow-up: Screening today revealed the patient's blood pressure to be in the pre-hypertensive range. The patient should follow up with a primary care provider for blood pressure management. AMA warnings: Oriented to person, place, and time. Gives appropriate answers and rational explanation of refusal of care. No indication for involuntary commitment is present, signs of psychosis, auditory hallucinations, delusional thinking or suicidal ideations. No slurred speech, tangential thinking, visual hallucinations or homicidal ideations. Speaks coherently. Abstract thinking intact. Clinical Impression: the patient has the capacity to make decisions regarding the medical care offered. Relevant issues reviewed and discussed with the patient. The suspected diagnosis, based upon the initiated medical screening exam, is abscess and has been discussed with the patient. Acknowledges understanding of the reasons for recommendations regarding medical treatment, medical tests and procedures. The recommended medical care being refused is IV, U/S, and possible I&D. Pt only wanted Rx for Abx. Discharge instructions were not provided. (Electronically signed by Alan Corral Dr. 03/20/2017 14:18)
--- NOTE | 2017-03-20 16:36 | ED DISCHARGE INSTRUCTIONS ---
Patient: SUMA VANGEAS General Instructions [facility] VisitID: [id number] [place] [address] 51y, F Registration Date/Time: 03/20/2017 Single deep abscess to the left lower extremity. No incision and drainage. INSTRUCTIONS Follow-up: Screening today revealed the patient's blood pressure to be in the pre-hypertensive range. The patient should follow up with a primary care provider for blood pressure management. AMA warnings: Oriented to person, place, and time. Gives appropriate answers and rational explanation of refusal of care. No indication for involuntary commitment is present, signs of psychosis, auditory hallucinations, delusional thinking or suicidal ideations. No slurred speech, tangential thinking, visual hallucinations or homicidal ideations. Speaks coherently. Abstract thinking intact. Clinical Impression: the patient has the capacity to make decisions regarding the medical care offered. Relevant issues reviewed and discussed with the patient. The suspected diagnosis, based upon the initiated medical screening exam, is abscess and has been discussed with the patient. Acknowledges understanding of the reasons for recommendations regarding medical treatment, medical tests and procedures. The recommended medical care being refused is IV, U/S, and possible I&D. Pt only wanted Rx for Abx. Discharge instructions were not provided. (Electronically signed by Alan Corral Dr. 03/20/2017 14:18)
--- NOTE | 2017-03-20 16:37 | ED MED RECONCILIATION SUMMARY ---
Patient: VLAIDMIR VANEGASYN Dayanara Medication Reconciliation Report [facility] VisitID: [id number] [address] [place] [address] 51y, F Registration Date/Time: 03/20/2017 Weight: 63.5 kg Height/Length: 65 in. BMI: 23.3 ALLERGIES: No Known Drug Allergy The patient's Home Medications are listed below: NONE. The source(s) of the original Home Medication information: patient The following Medications were given to the patient in the Emergency Department: None. The following Medications were prescribed to the patient: None.
--- NOTE | 2017-03-20 16:37 | ED MAR SUMMARY ---
..... Medication Administration Record [facility] [address] [id number] Patient: SUMA VANEGAS Visit ID: [id number] 51y, F Weight: 63.5 kg Height/Length: 65 in BMI: 23.3 ALLERGIES: No Known Drug Allergy
--- NOTE | 2017-03-20 16:37 | ED MAR SUMMARY ---
..... Medication Administration Record [facility] [address] [place], [place] [id number] Patient: SUMA VANEGAS Visit ID: [id number] 51y, F Weight: 63.5 kg Height/Length: 65 in BMI: 23.3 ALLERGIES: No Known Drug Allergy
--- NOTE | 2017-03-20 16:37 | ED MED RECONCILIATION SUMMARY ---
Patient: VLADIMIR VANEGASYN Dayanara Medication Reconciliation Report [facility] VisitID: [id number] [address] [place] [address] 51y, F Registration Date/Time: 03/20/2017 Weight: 63.5 kg Height/Length: 65 in. BMI: 23.3 ALLERGIES: No Known Drug Allergy The patient's Home Medications are listed below: NONE. The source(s) of the original Home Medication information: patient The following Medications were given to the patient in the Emergency Department: None. The following Medications were prescribed to the patient: None.
== END 2017-03-20 09:39 | disposition left against medical advice (07) ==
LOC: ED SRH 08:32
DX: L02.416 Cutaneous abscess of left lower limb (principal); F17.210 Nicotine dependence, cigarettes, uncomplicated; F11.10 Opioid abuse, uncomplicated; F15.10 Other stimulant abuse, uncomplicated